=== PATIENT | male | born 1940 | race Caucasian/White ===

== ENCOUNTER 2019-05-27 11:50 | Outpatient (CLI) | payer MEDICARE, OTHER ==
--- NOTE | 2019-05-27 13:55 | CT ---
CT ANGIO OF CHEST PERFORMED WITH INTRAVENOUS CONTRAST ENHANCEMENT WITH 3D RECONSTRUCTIONS: 05/27/19 HISTORY: Shortness of breath and elevated D-dimer. There is reticular changes in more of a subpleural location in both lung jimenez consistent with some scarring. There is no focal infiltrative process noted. No discrete pulmonary nodules are identified . The thoracic aorta is normal in caliber. There are coronary calcifications present. There is no sig nificant mediastinal or hilar adenopathy. A hiatal hernia is demonstrated. Good pulmonary artery opacification is obtained. No CT evidence for pulmonary embolus. The visualized liver parenchyma and right and left adrenal glands are normal. IMPRESSION: 1. Chronic lung change. 2. No CT evidence for pulmonary embolus. POS: [facility]
[2019-05-27] MEDS ORDERED: Iopamidol 370 76% 100 ML VIAL ONE (14:43)
== END 2019-05-27 11:51 | disposition home or self-care (01) ==
LOC: CT 11:50
PROVIDERS: ATTEND Nurse Practitioner Family
DX: R79.1 Abnormal coagulation profile (principal)
CPT/HCPCS: 71275; Q9967

== ENCOUNTER 2021-08-18 21:40 | Inpatient (IN) | payer MEDICARE, OTHER ==
[~2021-08-18 21:40] MED LIST: Iopamidol 370 76% 100 ML VIAL ONE
[2021-08-18] MEDS ORDERED: Sodium Bicarb 50 MEQ/50 ML Abboject 8.4% SYRINGE ONE (21:44)
[2021-08-18] MEDS ORDERED: Calcium Chloride 1 GM/10 ML Abboject SYRINGE ONE (21:44)
[2021-08-18] MEDS ORDERED: Norepinephrine 8 MG/0.9% NS 250 ML ONE (21:44)
[2021-08-18] MEDS ORDERED: EPINEPHrine 1 MG/10 ML Abboject SYRINGE ONE (21:44)
[2021-08-18] MEDS ORDERED: Atropine Sulfate 1 mg/10 ml Syringe ONE (21:44)
[2021-08-18 22:04] LABS: Actual Bicarbonate (HCO3a) 27.1 mEq/L (22-28); Analyzer IN Cardio ER; Base Excess (BEa) 0.9 mEq/L (-2.0 to +3.0); CO2 Tension 50.5 mmHg (35.0-45.0); Calcium, Ionized (arterial) 1.66 mmol/L (1.12-1.30); Carboxyhemoglobin (COHb) 0.2 gm% (0.0-3.0); O2 Tension (PaO2), arterial 188.7 mmHg (> 60.0); Potassium - ABG Lab 4.74 mmol/L (3.70-5.30); pH, Arterial 7.35 (7.35-7.45)
[2021-08-18 22:06] LABS: ALV-art Gradient 461.175 mmHg (0-20); Puncture Site RBA
[2021-08-18 22:15] LABS: Hemoglobin 9.6 g/dL (14.0-18.0); Mean Corpuscular HGB CONC 32.8 g/dL (32.0-36.0); Mean Corpuscular Hemoglobin 42.6 pg (27.0-31.0); Mean Platelet Volume 10.8 fL (7.4-10.4); Platelet Count 67 thou/uL (130-400); RBC Distribution Width 17.8 % (11.5-14.5); Red Blood Cell (RBC) Count 2.26 mill/uL (4.70-6.10); White Blood Cell (WBC) Count 10.6 thou/uL (4.8-10.8)
[2021-08-18 22:25] LABS: INR-International Normal Ratio 1.8; Prothrombin Time 21.6 sec (12.0-14.7)
[2021-08-18 22:26] LABS: PTT 46.3 sec (22.9-36.1)
[2021-08-18 22:35] LABS: ALT (SGPT) 14 U/L (8-55); AST (SGOT) 40 U/L (5-34); Albumin 3.1 g/dL (3.4-4.8); Alkaline Phosphatase 46 U/L (40-110); Anion Gap 18 mmol/L (10-20); BUN (Urea Nitrogen) 21 mg/dL (8.4-25.7); Bilirubin, Total 2.9 mg/dL (0.2-1.2); Calc. Creatinine Clearance 0 mL/min (70-130); Calcium 9.5 mg/dL (7.8-10.44); Carbon Dioxide 23 mmol/L (23-31); Chloride 101 mmol/L (98-107); Globulin 2.9 g/dL (2.4-3.5); Glucose 143 mg/dL (83-110); Potassium 5.4 mmol/L (3.5-5.1); Sodium 137 mmol/L (136-145)
[2021-08-18 22:56] LABS: Anisocytosis MODERATE=16-30 cells (100X) (0-5/hpf); Band 25 % (5-11); Eosinophils 1 % (0-10); Large Platelets SLIGHT; Lymphocytes 32 % (21-51); MDiff Complete? YES; Macrocytosis MODERATE=16-30 cells (100X) (0-5/hpf); Metamyelocyte 5 % (0-0); Monocytes 6 % (0-10); Myelocyte 1 % (0-0); Neutrophil 28 % (42-75); Nucleated RBC 5 % (0); Ovalocytes SLIGHT = 2-5 cells (100X) (0-1/hpf); Platelet Morphology Comment Appears Decreased; Reflex for Review?? NO; Tear Drops SLIGHT = 2-5 cells (100X) (0-1/hpf)
[2021-08-18 23:03] LABS: CKMB 2.6 ng/mL (0-6.6)
[2021-08-18] MEDS ORDERED: Ondansetron ODT 4 MG TAB PO PRN (23:25)
[2021-08-18] MEDS ORDERED: Acetaminophen 325 MG TAB PO PRN (23:25)
[2021-08-18] MEDS ORDERED: Ondansetron PF 4 MG/2 ML Vial IVP PRN (23:25)
[2021-08-18] MEDS ORDERED: Acetaminophen 650 MG Suppository PR PRN (23:25)
[2021-08-18] MEDS ORDERED: Norepinephrine 8 MG/0.9% NS 250 ML IVPB PRN (23:28)
[2021-08-18] MEDS ORDERED: Electrolyte Replacement Protocol 1 EACH IVPB ONE (23:28)
[2021-08-18] MEDS ORDERED: Ventilator Sedation Protocol 1 EACH FS SCH (23:30)
[2021-08-18] MEDS ORDERED: fentaNYL Citrate-0.9 % NaCl/PF 100 ML IV SCH (23:45)
[2021-08-18] MEDS ORDERED: Propofol BOLUS 1,000 MG/100 ML VIAL IV PRN (23:45)
[2021-08-18] MEDS ORDERED: Fentanyl BOLUS 250 ML IVPB PRN (23:45)
[2021-08-18] MEDS ORDERED: Electrolyte Replacement Protocol FS PRN (23:45)
[2021-08-18] MEDS ORDERED: Morphine 2 MG/ML VIAL SLOW IVP PRN (23:45)
[2021-08-18] MEDS ORDERED: Propofol 1,000 MG/100 ML VIAL IV PRN (23:45)
[2021-08-18] MEDS ORDERED: DISCONTINUE PREVIOUS NARCOTIC PAIN MEDICATIONS AND BENZODIAZEPINES FS SCH (23:45)
[2021-08-18 23:51] LABS: Bacteria/HPF None Seen HPF (None Seen); Bilirubin Negative (Negative); Blood, Urine 1+ (Negative); Clarity Clear (Clear); Glucose, Urine (Dipstick) Normal (Negative); Ketone, Urine Negative (Negative); Leukocyte Negative Leu/uL (Negative); Nitrite Negative (Negative); Protein, Urine (Dipstick) 300 mg/dL (Neg-Trace); Specific Gravity, Urine 1.018 (1.002-1.036); Squamous Epithelial 0-3 HPF (0-3); Urobilinogen 3 mg/dL (Less than 2); pH, Urine 6.5 (5.0-9.0)
[2021-08-19 00:03] LABS: RBC/HPF 0-3 HPF (0-3); WBC/HPF 0-3 HPF (0-3)
[2021-08-19 00:11] LABS: SARS-CoV-2 NAA Rapid Test Not Detected (NotDetected)
[2021-08-19 01:30] LABS: Troponin I 0.311 ng/mL (< 0.028)
[2021-08-19 01:34] VITALS: BMI 30.3
[2021-08-19] MEDS ORDERED: Pantoprazole 40 MG VIAL IVP SCH ×2 (01:45→21:00)
[2021-08-19] MEDS ORDERED: Electrolyte Replacement Protocol 1 EACH FS SCH (01:45)
[2021-08-19] MEDS ORDERED: Enoxaparin Sodium 100 MG/ML SYRINGE SC SCH (02:00)
[2021-08-19] MEDS ORDERED: Vasopressin 20 UNIT, Admixture Fee 1 EACH in Sodium Chloride 0.9% 50 ML IV SCH (02:15)
[2021-08-19 02:34] VITALS: BP 96/65
[2021-08-19 02:34] LABS: Hemoglobin 9.2 g/dL (14.0-18.0); Mean Corpuscular HGB CONC 33.8 g/dL (32.0-36.0); Mean Corpuscular Hemoglobin 43.6 pg (27.0-31.0); Mean Platelet Volume 10.3 fL (7.4-10.4); Platelet Count 85 thou/uL (130-400); White Blood Cell (WBC) Count 14.2 thou/uL (4.8-10.8)
[2021-08-19] MEDS: Lorazepam 2 MG/ML VIAL SLOW IVP PRN ×4 (02:34→07:00)
[2021-08-19 02:35] LABS: Anisocytosis SLIGHT = 6-15 cells (100X) (0-5/hpf); Band 27 % (5-11); Burr Cells SLIGHT = 2-5 cells (100X) (0-1/hpf); Elliptocytes SLIGHT = 2-5 cells (100X) (0-1/hpf); Eosinophils 1 % (0-10); Lymphocytes 3 % (21-51); MDiff Complete? YES; Macrocytosis MODERATE=16-30 cells (100X) (0-5/hpf); Metamyelocyte 6 % (0-0); Monocytes 6 % (0-10); Neutrophil 57 % (42-75); Ovalocytes SLIGHT = 2-5 cells (100X) (0-1/hpf); Platelet Morphology Comment Appears Decreased; Target Cells MODERATE= 6-15 cells (100X) (0-1/hpf)
[2021-08-19 02:44] LABS: Anion Gap 17 mmol/L (10-20); BUN (Urea Nitrogen) 26 mg/dL (8.4-25.7); Calc. Creatinine Clearance 40 mL/min (70-130); Calcium 8.8 mg/dL (7.8-10.44); Carbon Dioxide 24 mmol/L (23-31); Chloride 100 mmol/L (98-107); Glucose 116 mg/dL (83-110); Magnesium 2.5 mg/dL (1.6-2.6); Potassium 5.4 mmol/L (3.5-5.1); Sodium 136 mmol/L (136-145)
[2021-08-19 02:45] LABS: Iron 184 ug/dL (65-175); Iron Binding Capacity, Total 186 mcg/dL (261-462)
[2021-08-19 03:54] LABS: Ferritin 3065.94 ng/mL (22-322)
[2021-08-19 04:46] VITALS: TEMP 97.7
[2021-08-19] MEDS ORDERED: EPINEPHrine 4 MG in Dextrose 5% in Water 250 ML IV SCH (05:00)
[2021-08-19 05:18] LABS: Troponin I 0.569 ng/mL (< 0.028)
[2021-08-19] MEDS ORDERED: Furosemide 40 MG/4 ML VIAL SLOW IVP SCH (06:00)
[2021-08-19] MEDS: Morphine 2 MG/ML VIAL SLOW IVP PRN ×3 (06:20→06:59)
== END 2021-08-19 10:25 | disposition expired | DRG 292 ==
LOC: ERS 21:40 → CCU 22:27
PROVIDERS: ADMIT Student in an Organized Health Care Education/Training Program; ATTEND Family Medicine
PROC: 5A1935Z Respiratory Ventilation, Less than 24 Consecutive Hours (ICD-10-PCS; principal; 2021-08-18)
PROC: 3E033XZ Introduction of Vasopressor into Peripheral Vein, Percutaneous Approach (ICD-10-PCS; 2021-08-18)
PROC: 5A12012 Performance of Cardiac Output, Single, Manual (ICD-10-PCS; 2021-08-18)
PROC: 0D9670Z Drainage of Stomach with Drainage Device, Via Natural or Artificial Opening (ICD-10-PCS; 2021-08-18)
PROC: 06HY33Z Insertion of Infusion Device into Lower Vein, Percutaneous Approach (ICD-10-PCS; 2021-08-18)
PROC: 0CCM8ZZ Extirpation of Matter from Pharynx, Via Natural or Artificial Opening Endoscopic (ICD-10-PCS; 2021-08-18)
DX: I50.23 Acute on chronic systolic (congestive) heart failure (principal); N17.9 Acute kidney failure, unspecified; Z66 Do not resuscitate; Z51.5 Encounter for palliative care; Z20.822 Contact with and (suspected) exposure to COVID-19; I46.2 Cardiac arrest due to underlying cardiac condition; R57.0 Cardiogenic shock; I48.91 Unspecified atrial fibrillation; R77.8 Other specified abnormalities of plasma proteins; E87.5 Hyperkalemia; D69.6 Thrombocytopenia, unspecified; N18.9 Chronic kidney disease, unspecified; T17.298A Other foreign object in pharynx causing other injury, initial encounter; Z78.1 Physical restraint status; Z88.8 Allergy status to other drugs, medicaments and biological substances; Z98.890 Other specified postprocedural states
CPT/HCPCS: 36415; 36416; 36556; 36600; 51702; 70450; 71045; 71260; 72125; 74177; 80048; 80053; 81003; 81015; 82553; 82607; 82728; 82746; 82805; 83540; 83550; 83735; 83880; 84484; 85025; 85610; 85730; 93005; 94002; 94003; 96365; 96366; 96368; 96374; 96375; 99292; C9113; J0171; J0461; J2060; J2270; J2704; J7070; Q9967